=== PATIENT | female | born 1940 | race Caucasian/White ===

== ENCOUNTER 2017-07-06 10:15 | Day surgery (SDC) | payer MEDICARE ==
[2017-07-06] MEDS ORDERED: Trastuzumab 450 MG in Sodium Chloride 0.9% 250 ML 250 ML IVPB SCH (10:45)
[2017-07-06 12:06] VITALS: BP 125/62; TEMP 97.7
== END 2017-07-06 12:06 | disposition home or self-care (01) ==
LOC: ONC/OP 10:15
PROVIDERS: ATTEND Internal Medicine Hematology & Oncology
DX: Z51.11 Encounter for antineoplastic chemotherapy (principal); C50.412 Malignant neoplasm of upper-outer quadrant of left female breast; E78.5 Hyperlipidemia, unspecified; F41.9 Anxiety disorder, unspecified; Z88.0 Allergy status to penicillin; Z98.890 Other specified postprocedural states
CPT/HCPCS: 96413; J7050; J9355

== ENCOUNTER 2017-07-27 12:32 | Day surgery (SDC) | payer MEDICARE ==
[2017-07-27] MEDS ORDERED: Trastuzumab 450 MG in Sodium Chloride 0.9% 250 ML 250 ML IVPB SCH (12:45)
[2017-07-27] MEDS ORDERED: Sodium Chloride 0.9% 20 ML ONE (13:28)
== END 2017-07-27 14:50 | disposition home or self-care (01) ==
LOC: ONC/OP 12:32
PROVIDERS: ATTEND Internal Medicine Hematology & Oncology
DX: Z51.11 Encounter for antineoplastic chemotherapy (principal); C50.412 Malignant neoplasm of upper-outer quadrant of left female breast; E78.5 Hyperlipidemia, unspecified; Z88.0 Allergy status to penicillin; Z17.1 Estrogen receptor negative status [ER-]
CPT/HCPCS: 96413; A4216; J1642; J7050; J9355

== ENCOUNTER 2017-09-14 10:08 | Day surgery (SDC) | payer MEDICARE ==
[2017-09-14] MEDS ORDERED: Sodium Chloride 0.9% 20 ML ONE (10:23)
[2017-09-14] MEDS ORDERED: ADMIXTURE FEE IVPB SCH (10:30)
[2017-09-14] MEDS ORDERED: TRASTUZUMAB IVPB SCH (10:30)
[2017-09-14] MEDS ORDERED: SODIUM CHLORIDE IVPB SCH (10:30)
[2017-09-14 10:40] VITALS: BP 143/72; TEMP 97.4
== END 2017-09-14 13:56 | disposition home or self-care (01) ==
LOC: ONC/OP 10:08
PROVIDERS: ATTEND Internal Medicine Hematology & Oncology
DX: Z51.11 Encounter for antineoplastic chemotherapy (principal); C50.412 Malignant neoplasm of upper-outer quadrant of left female breast; E78.5 Hyperlipidemia, unspecified; F41.9 Anxiety disorder, unspecified; Z88.0 Allergy status to penicillin
CPT/HCPCS: 96413; A4216; J1642; J7050; J9355

== ENCOUNTER 2017-10-05 12:44 | Day surgery (SDC) | payer MEDICARE ==
[2017-10-05] MEDS ORDERED: ADMIXTURE FEE IVPB SCH (13:30)
[2017-10-05] MEDS ORDERED: SODIUM CHLORIDE IVPB SCH (13:30)
[2017-10-05] MEDS ORDERED: TRASTUZUMAB IVPB SCH (13:30)
[2017-10-05] MEDS ORDERED: Sodium Chloride 0.9% 20 ML ONE (13:40)
== END 2017-10-05 14:41 | disposition home or self-care (01) ==
LOC: ONC/OP 12:44
PROVIDERS: ATTEND Internal Medicine Hematology & Oncology
DX: Z51.11 Encounter for antineoplastic chemotherapy (principal); C50.412 Malignant neoplasm of upper-outer quadrant of left female breast; E78.5 Hyperlipidemia, unspecified; F41.9 Anxiety disorder, unspecified; Z88.0 Allergy status to penicillin; Z79.899 Other long term (current) drug therapy
CPT/HCPCS: 96413; A4216; J1642; J5355; J7050

== ENCOUNTER 2017-11-01 10:04 | Day surgery (SDC) | payer MEDICARE ==
[2017-11-01] MEDS ORDERED: Sodium Chloride 0.9% 20 ML ONE (10:17)
[2017-11-01] MEDS ORDERED: TRASTUZUMAB IVPB SCH (11:00)
[2017-11-01] MEDS ORDERED: ADMIXTURE FEE IVPB SCH (11:00)
[2017-11-01] MEDS ORDERED: SODIUM CHLORIDE IVPB SCH (11:00)
== END 2017-11-01 16:20 | disposition home or self-care (01) ==
LOC: ONC/OP 10:04
PROVIDERS: ATTEND Internal Medicine Hematology & Oncology
DX: Z51.11 Encounter for antineoplastic chemotherapy (principal); C50.412 Malignant neoplasm of upper-outer quadrant of left female breast; E78.5 Hyperlipidemia, unspecified; F41.9 Anxiety disorder, unspecified; Z17.1 Estrogen receptor negative status [ER-]; Z79.899 Other long term (current) drug therapy; Z88.0 Allergy status to penicillin; Z90.10 Acquired absence of unspecified breast and nipple
CPT/HCPCS: 96413; A4216; J1642; J7050; J9355